=== PATIENT | female | born 1975 | race Caucasian/White ===

== ENCOUNTER 2017-04-29 19:48 | Inpatient (IN) ==
[2017-04-29] MEDS ORDERED: Vancomycin 1,000 MG in D5% in Water 250 ML IVPB ONE (19:51)
[2017-04-29] MEDS: 0.9 % Sodium Chloride 1,000 ML IVC SCH ×2 (20:09→21:41)
[2017-04-29] MEDS ORDERED: *HR* FentaNYL (PF) 100 MCG/2 ML VIAL IVP ONE (20:12)
[2017-04-29] MEDS ORDERED: Sulfamethoxazole/Trimeth 34 ML in D5% in Water 500 ML IVPB STA (20:12)
[2017-04-29 20:13] LABS: Basophils % 0.4 %; Eosinophils # 0.1 K/mcL (0.0-0.6); Eosinophils % 1.1 %; Hematocrit 35.9 % (35.3-44.9); Hemoglobin 11.3 g/dL (11.5-15.4); Immature Granulocytes % 0.6 % (0-4); Lymphocytes # 1.1 K/mcL (0.6-4.6); Lymphocytes % 12.2 %; Mean Corpuscular HGB Conc 31.5 g/dL (31.6-35.5); Mean Corpuscular Hemoglobin 25.9 pg (28.0-33.3); Mean Corpuscular Volume 82.3 fL (83.0-100.0); Mean Platelet Volume 9.9 fL (9.4-12.4); Monocytes # 0.9 K/mcL (0.0-1.3); Monocytes % 9.8 %; Neutrophils # 6.8 K/mcL (1.6-8.9); Platelet Count 166 K/mcL (140-400); Red Blood Count 4.36 M/mcL (3.82-4.97); Red Cell Distribution Width 19.3 % (11.5-14.5); Segmented Neutrophils % 75.9 %
[2017-04-29 20:25] LABS: Prothrombin Time 10.6 Seconds (9.4-12.1)
--- NOTE | 2017-04-29 20:26 | Emergency Department Note ---
Disposition Clinical Impression: Cellulitis of elbow Disposition: Admitted As Inpatient Condition: Good Referrals: NONE,PCP [Primary Care Provider] - Forms: ED Satisfaction Letter Time of Disposition: 22:29 Extremity Problem HPI - General Chief complaint: ED Extremity Problem,Nontraumatic Stated complaint: right elbow cellulitis Time Seen by Provider: 04/29/17 19:51 Source: patient, EMS Limitations: no limitations Nursing Notes Reviewed: Yes Vital Signs Reviewed: Yes - History of Present Illness HPI Narrative: 42 year old female who is a IVDA and states that she had some increased cellulytic change to her right elbow that started yesterday and now it is increasingly swollen and difficult to move due to pain. She was originally seen in the urgent care and presnted hypotensive and tachycardic. She denies fevers, or nasuea or vomitting. She states that she shot up in the arm a few days ago. Patinet states that she is having difficulty with range of motion due to pain and it is extremely tender to touch. Patient is curled up in bed and tearful. Pulses are do proximally and distally and good cap refill in the fingers. Pain Scale: 10 - Related Data Home Medications Medication Instructions Recorded Confirmed Albuterol Sulfate [Albuterol 2 puff IH Q6H PRN 04/24/16 04/29/17 Inhaler] Aripiprazole [Abilify] 20 mg PO DAILY 04/24/16 04/29/17 Vortioxetine Hydrobromide 20 mg PO QAM 04/24/16 04/29/17 [Trintellix] Zolpidem [Ambien] 10 mg PO HS 04/24/16 04/29/17 clonazePAM [Klonopin] 1 mg PO 5XD 04/24/16 04/29/17 Alendronate Sodium 70 mg PO TH 04/29/17 04/29/17 Aripiprazole [Abilify] 5 mg PO DAILY 04/29/17 04/29/17 Calcium Carbonate/Vitamin D3 1 each PO BID 04/29/17 04/29/17 [Calcium 600-Vit D3 400 Tablet] CarBAMazepine [Equetro] 100 mg PO BID 04/29/17 04/29/17 Docusate Sodium [Dok] 100 mg PO BID 04/29/17 04/29/17 Doxepin [Sinequan] 25 mg PO HS 04/29/17 04/29/17 Gabapentin [Neurontin] 900 mg PO TID 04/29/17 04/29/17 Omeprazole [PriLOSEC] 20 mg PO DAILY 04/29/17 04/29/17 Allergies Allergy/AdvReac Type Severity Reaction Status Date / Time Amoxicillin [From Amoxil] AdvReac Diarrhea Verified 04/29/17 20:46 Cyclobenzaprine AdvReac Shakiness Verified 04/29/17 20:46 [From Flexeril] Constitutional: Denies: fever, chills, weakness, weight change Eyes: Denies: eye pain, eye discharge, vision change ENT ED: Denies: ear pain, throat pain, dental pain, hearing loss, epistaxis, congestion, dysphagia Cardiovascular: Denies: chest pain, palpitations, dyspnea on exertion, edema, syncope Respiratory: Denies: cough, dyspnea, wheezes, hemoptysis, stridor Gastrointestinal: Denies: abdominal pain, nausea, vomiting, diarrhea, constipation, hematemesis, melena, hematochezia Genitourinary: Denies: dysuria, frequency, hematuria, discharge Musculoskeletal: Reports: other (right elbow pain). Denies: back pain, neck pain, arthralgia, myalgia Integumentary: Denies: rash, abrasion, lesions Neurological: Denies: headache, weakness, numbness, paresthesias, confusion, abnormal gait, vertigo Psychiatric: Denies: anxiety, depression, suicidal thoughts, homicidal thoughts , auditory hallucinations, visual hallucinations Endocrine: Denies: fatigue Hematological/Lymphatic: Denies: easy bleeding, easy bruising Allergic/Immunologic: Denies: facial swelling, urticaria Past Medical History - Past Medical History Medical history: Reports: no medical history, other Psychiatric history: Reports: prior suicide attempt, previous psychiatric hospitalization - Social History Smoking Status: Current every day smoker Smokeless Tobacco Status: No Alcohol use: Reports: none Drug use: Reports: marijuana Physical Exam - General Limitations: no limitations General appearance: alert, in no apparent distress - Head Head exam: atraumatic, normocephalic, normal inspection - Eye Eye exam: Present: normal appearance, PERRL, EOMI - Expanded Eye Exam Pupils: Left: reactive - ENT ENT exam: normal exam, normal oropharynx, mucous membranes moist - Expanded ENT Exam External ear exam: Present: normal external inspection Mouth exam: Present: normal external inspection Teeth exam: Present: normal inspection Throat exam: Present: normal inspection - Neck Neck exam: Present: normal inspection, full ROM, trachea midline - Chest Chest inspection: Present: normal inspection, symmetric chest wall rise - Respiratory Respiratory exam: Present: normal lung sounds bilaterally - Cardiovascular Cardiovascular exam: Present: regular rate, normal rhythm, normal heart sounds - Abdominal Exam Abdominal exam: Present: soft, Non-Tender. Absent: tenderness, distention, guarding, rebound, rigidity - Extremities Exam Extremities exam: Present: normal inspection, full ROM. Absent: tenderness, pedal edema - Expanded Upper Extremity Exam Shoulder exam: Present: normal inspection, full ROM Arm exam: Present: normal inspection, full ROM Elbow exam: Present: tenderness, swelling, erythema, other (right elbow is swollen with eythematous change and tender to touch, good pulses proximally and distally , good cap refill in right arm). Absent: full ROM, ecchymosis, deformity Forearm/Wrist exam: Present: normal inspection, full ROM Hand exam: Present: normal inspection, full ROM Vascular exam: Normal: capillary refill, radial pulse - Expanded Lower Extremity Exam Hip/Pelvis exam: Present: normal inspection, full ROM Upper leg exam: Present: normal inspection, full ROM Knee exam: Present: normal inspection, full ROM Lower leg exam: Present: normal inspection, full ROM Ankle exam: Present: normal inspection, full ROM Foot/toe exam: Present: normal inspection, full ROM Neurovascular/Tendon exam: Absent: motor deficit, sensory deficit, tendon deficit - Back Exam Back exam: Present: normal inspection, full ROM. Absent: tenderness - Neurological Exam Neurological exam: Present: alert, oriented X3 - Expanded Neurological Exam Patient oriented to: Present: person, place, time Coma Scale Eye Opening: Spontaneous Coma Scale Motor Response: Obeys Commands Coma Scale Verbal Response: Oriented Coma Scale Total: 15 - Psychiatric Psychiatric exam: Present: normal affect, normal mood - Skin Skin exam: Present: warm, dry, intact, normal color - Expanded Skin Exam 1 - cellutlits and swollen elbow Course Course Narrative: we will do CT of the right extremitiy in addition to vanco/bactrim for therapy and IVF. SEpsis protocol. admit to medicine. - Reevaluation(s) Reevaluation #1: updated [place] results. WE will admit to medicne. She is agreeable to admission. Time: 22:28 - Consultations Consultation #1: discused case with dr styles and he accepts patinet for admission. Time: 22:29 Vital Signs Temperature 98.0 F 04/29/17 19:52 Pulse Rate 99 04/29/17 19:52 Respiratory Rate 16 04/29/17 19:52 Blood Pressure 95/73 04/29/17 19:52 O2 Sat by Pulse Oximetry 96 04/29/17 19:52 Temperature 98.0 F 04/29/17 19:52 Pulse Rate 99 04/29/17 19:52 Respiratory Rate 16 04/29/17 19:52 Blood Pressure 95/73 04/29/17 19:52 O2 Sat by Pulse Oximetry 97 04/29/17 19:58 Oxygen Delivery Oxygen Delivery Room Air Extremity Problem, Nontraumati - Lab Data Result diagrams: 04/29/17 20:05 04/29/17 20:05 Lab Results 04/29/17 04/29/17 04/29/17 Range/Units 20:05 20:05 20:05 WBC 9.0 (4.3-11.1) K/mcL RBC 4.36 (3.82-4.97) M/mcL Hgb 11.3 L (11.5-15.4) g/dL Hct 35.9 (35.3-44.9) % MCV 82.3 L (83.0-100.0) fL MCH 25.9 L (28.0-33.3) pg MCHC 31.5 L (31.6-35.5) g/dL RDW 19.3 H (11.5-14.5) % Plt Count 166 (140-400) K/mcL MPV 9.9 (9.4-12.4) fL Immature Gran % 0.6 (0-4) % Seg Neutrophils % 75.9 % Lymphocytes % 12.2 % Monocytes % 9.8 % Eosinophils % 1.1 % Basophils % 0.4 % Neutrophils # 6.8 (1.6-8.9) K/mcL Lymphocytes # 1.1 (0.6-4.6) K/mcL Monocytes # 0.9 (0.0-1.3) K/mcL Eosinophils # 0.1 (0.0-0.6) K/mcL Basophils # 0.0 (0.0-0.2) K/mcL PT 10.6 (9.4-12.1) Seconds INR 1.0 APTT 26.7 (26.0-36.0) Seconds Sodium (136-145) mEq/L Potassium (3.5-4.5) mEq/L Chloride (98-109) mEq/L Carbon Dioxide (19-29) mEq/L BUN (7-20) mg/dL Creatinine (0.57-1.11) mg/dL Est GFR ( Amer) (> 60) Est GFR (Non-Af Amer) (> 60) BUN/Creatinine Ratio (6-26) Glucose (70-99) mg/dL Calculated Osmolality (280-300) Lactic Acid (0.5-2.2) mmol/L Calcium (8.6-10.8) mg/dL Phosphorus (2.3-4.7) mg/dL Magnesium (1.6-2.6) mg/dL Total Bilirubin (0.2-1.2) mg/dL Direct Bilirubin (0.0-0.5) mg/dL Indirect Bilirubin (0.0-1.2) mg/dL AST (5-34) Units/L ALT (0-55) Units/L Alkaline Phosphatase (38-126) Units/L Troponin I (0-0.03) ng/mL Serum Total Protein (6.0-8.3) g/dL Albumin (3.5-5.0) g/dL Globulin (2.4-3.5) g/dL Albumin/Globulin Ratio (1.1-2.2) Lipase 41 (8-78) Units/L 04/29/17 04/29/17 04/29/17 Range/Units 20:05 20:05 20:05 WBC (4.3-11.1) K/mcL RBC (3.82-4.97) M/mcL Hgb (11.5-15.4) g/dL Hct (35.3-44.9) % MCV (83.0-100.0) fL MCH (28.0-33.3) pg MCHC (31.6-35.5) g/dL RDW (11.5-14.5) % Plt Count (140-400) K/mcL MPV (9.4-12.4) fL Immature Gran % (0-4) % Seg Neutrophils % % Lymphocytes % % Monocytes % % Eosinophils % % Basophils % % Neutrophils # (1.6-8.9) K/mcL Lymphocytes # (0.6-4.6) K/mcL Monocytes # (0.0-1.3) K/mcL Eosinophils # (0.0-0.6) K/mcL Basophils # (0.0-0.2) K/mcL PT (9.4-12.1) Seconds INR APTT (26.0-36.0) Seconds Sodium 141 (136-145) mEq/L Potassium 3.5 (3.5-4.5) mEq/L Chloride 108 (98-109) mEq/L Carbon Dioxide 23 (19-29) mEq/L BUN 11 (7-20) mg/dL Creatinine 0.67 (0.57-1.11) mg/dL Est GFR ( Amer) > 60 (> 60) Est GFR (Non-Af Amer) > 60 (> 60) BUN/Creatinine Ratio 16 (6-26) Glucose 141 H (70-99) mg/dL Calculated Osmolality 294 (280-300) Lactic Acid 1.9 (0.5-2.2) mmol/L Calcium 8.8 (8.6-10.8) mg/dL Phosphorus 2.3 (2.3-4.7) mg/dL Magnesium 1.5 L (1.6-2.6) mg/dL Total Bilirubin 0.3 (0.2-1.2) mg/dL Direct Bilirubin 0.2 (0.0-0.5) mg/dL Indirect Bilirubin 0.1 (0.0-1.2) mg/dL AST 61 H (5-34) Units/L ALT 83 H (0-55) Units/L Alkaline Phosphatase 275 H (38-126) Units/L Troponin I 0.00 (0-0.03) ng/mL Serum Total Protein 6.9 (6.0-8.3) g/dL Albumin 2.9 L (3.5-5.0) g/dL Globulin 4.0 H (2.4-3.5) g/dL Albumin/Globulin Ratio 0.7 L (1.1-2.2) Lipase (8-78) Units/L - EKG Data EKG attestation: Yes I reviewed and interpreted this EKG. EKG results narrative: sinus tachcyardia with rate of 107. NO STEMI. short AL interval. no change from 04/23/16. 2001
[2017-04-29 20:28] LABS: Activated Partial Thrombo Time 26.7 Seconds (26.0-36.0); Alanine Aminotransferase 83 Units/L (0-55); Albumin 2.9 g/dL (3.5-5.0); Albumin/Globulin Ratio 0.7 (1.1-2.2); Alkaline Phosphatase 275 Units/L (38-126); Aspartate Amino Transferase 61 Units/L (5-34); BUN/Creatinine Ratio 16 (6-26); Bilirubin,Direct 0.2 mg/dL (0.0-0.5); Bilirubin,Indirect 0.1 mg/dL (0.0-1.2); Bilirubin,Total 0.3 mg/dL (0.2-1.2); Blood Urea Nitrogen 11 mg/dL (7-20); Calcium 8.8 mg/dL (8.6-10.8); Carbon Dioxide 23 mEq/L (19-29); Chloride 108 mEq/L (98-109); Glucose 141 mg/dL (70-99); Magnesium 1.5 mg/dL (1.6-2.6); Osmolality,Calculated 294 (280-300); Phosphorous 2.3 mg/dL (2.3-4.7); Potassium 3.5 mEq/L (3.5-4.5); Sodium 141 mEq/L (136-145); Total Protein 6.9 g/dL (6.0-8.3); eGFR For African Americans > 60 (> 60); eGFR For Non-African Americans > 60 (> 60)
[2017-04-29] MEDS ORDERED: clonazePAM 1 MG TABLET PO PRN (23:27)
[2017-04-29] MEDS ORDERED: Naloxone 0.4 MG/ML INJ IVP PRN (23:29)
--- NOTE | 2017-04-29 23:36 | Internal Med History&Physical ---
Date of Encounter: 04/30/17 Time of Encounter: 00:03 Assessment and Plan (1) Cellulitis of elbow Current visit: Yes Status: Acute IV vancomycin, add IV Zosyn given gas on CT to cover anaerobes and gas producing organisms. IV fluid boluses. Given CT findings of no drainable pockets of fluid we will hold general surgery consult for now and monitor hospital course - Will reevaluate response to antibiotics during hospitalization Blood cultures sent from the ER (2) Anxiety Current visit: No Status: Acute Continue medicines, dual diagnosis (3) Depression Current visit: No Status: Acute Continue medicines, dual diagnosis Qualifiers: Depression Type: major depressive disorder Major depression recurrence: recurrent Active/Remission status: currently active Major depression episode severity: moderate Qualified Code(s): F33.1 - Major depressive disorder, recurrent, moderate (4) Polysubstance abuse Current visit: No Status: Acute Reports amphetamines and use to me denies opiates Urine drug screen Social work consult Internal Medicine - H&P: HPI Chief complaint: right elbow swelling History of present illness: Ms. South is a 42 year old female with history of IV and nasal amphetamine use (denies opiate use) who presents with 2-3 days worsening right elbow swelling associated with pain. Also reports feeling subjective fevers. She was admitted for treatment off complicated cellulitis given her symptoms and clinical findings of borderline low blood pressure on presentation. She reports attempted IV access of that arm recently. She reports progressive pain in the right elbow but denies any sensory deficits. Objectively her white count and lactic acid were normal. Blood pressure borderline low normal. In sinus tachycardia. CT of the elbow did not identify any fluid collection that could be drained but suggested a small collection of gas in the subcutaneous fat FINDINGS: Bones: No fracture or dislocation. No osseous erosion. No suspicious lytic or blastic osseous lesion. Soft Tissue: There is a 2.8 x 1.1 x 2.2 cm collection of gas in the subcutaneous fat posterior and ulnar to the proximal ulna. Adjacent subcutaneous fat stranding and skin thickening. No well-defined drainable fluid collection. The visualized musculature is unremarkable. No abnormal soft tissue mass. The neurovascular structures are within normal limits. Joint: No joint effusion or significant degenerative changes. RECOMMENDATIONS: 1. 2.8 x 1.1 x 2.2 cm collection of gas in the subcutaneous fat posterior and ulnar to the proximal ulna with adjacent subcutaneous fat stranding and skin thickening compatible cellulitis. No well-defined drainable fluid collection. 2. No acute osseous abnormality. Past Med Surg Social Fam HX - Past Medical History Medical history: arthritis Psychiatric history: bipolar, PTSD, prior suicide attempt, previous psychiatric hospitalization - Social History Smoking Status: Current every day smoker Packs per day: 1/2 Smokeless Tobacco Status: No Alcohol use: none Drug use: marijuana Internal Medicine - H&P: Meds Albuterol Sulfate [Albuterol Inhaler] 2 puff IH Q6H PRN 04/24/16 [History] Aripiprazole [Abilify] 20 mg PO DAILY 04/24/16 [History] Vortioxetine Hydrobromide [Trintellix] 20 mg PO QAM 04/24/16 [History] Zolpidem [Ambien] 10 mg PO HS 04/24/16 [History] clonazePAM [Klonopin] 1 mg PO 5XD 04/24/16 [History] Alendronate Sodium 70 mg PO TH 04/29/17 [History] Aripiprazole [Abilify] 5 mg PO DAILY 04/29/17 [History] Calcium Carbonate/Vitamin D3 [Calcium 600-Vit D3 400 Tablet] 1 each PO BID 04/29 [History] CarBAMazepine [Equetro] 100 mg PO BID 04/29/17 [History] Docusate Sodium [Dok] 100 mg PO BID 04/29/17 [History] Doxepin [Sinequan] 25 mg PO HS 04/29/17 [History] Gabapentin [Neurontin] 900 mg PO TID 04/29/17 [History] Omeprazole [PriLOSEC] 20 mg PO DAILY 04/29/17 [History] 3 Allergy/AdvReac Type Severity Reaction Status Date / Time Amoxicillin [From Amoxil] AdvReac Diarrhea Verified 04/29/17 20:46 Cyclobenzaprine AdvReac Shakiness Verified 04/29/17 20:46 [From Flexeril] All Systems PM: A 10-system review of systems was performed and is negative for pertinent findings except as documented above in the HPI. Review of systems: ROS 14 point review of systems reviewed as best as possible given presentation. Pertinent positive or negative as per HPI or otherwise reviewed as negative - Constitutional Vitals: Temp Pulse Resp BP Pulse Ox 98.0 F 99 18 101/67 97 09/11/17 19:52 04/29/17 19:52 04/29/17 22:39 04/29/17 22:39 04/29/17 19:58 Exam: General - AAO x 3 Psych - Appropriate affect/speech. No agitation Eyes - RENÉE. Eye lids intact. No scleral icterus Heart - sinus tachycardia. RRR. S1 and S2 present. No added HS/murmurs appreciated. No elevated JVD appreciated. Lung - Adequate air entry b/l, No crackles/wheezes appreciated GI - Soft, non-tender. No hepatosplenomegaly/ascites. BS+ - No CVA/suprapubic tenderness or palpable bladder distension Skin - tattoos present. Small puncture wounds in the extremities noted but does not appear infected MSK - right elbow swelling and tense with movements Internal Med - H&P Results - Labs CBC & Chem 7: 04/29/17 20:05 04/29/17 20:05
[2017-04-29] MEDS ORDERED: Magnesium Sulfate 2 GM in D5% in Water 100 ML IVPB ONE (23:49)
[2017-04-30] MEDS: Gabapentin 300 MG CAPSULE PO SCH ×4 (00:07→21:13)
[2017-04-30] MEDS: *HR* HYDROmorphone 2 MG/ML SYRINGE IVP PRN ×3 (00:09→21:13)
[2017-04-30] MEDS: 0.9 % Sodium Chloride 1,000 ML IVC SCH ×4 (00:12→21:13)
[2017-04-30] MEDS: Piperacillin/Tazobactam 3.375 GM in D5% in Water (Mini-Bag+) 100 ML IVPB SCH ×3 (00:13→15:06)
[2017-04-30 03:51] LABS: Basophils % 0.3 %; Eosinophils # 0.1 K/mcL (0.0-0.6); Eosinophils % 1.9 %; Hematocrit 33.7 % (35.3-44.9); Hemoglobin 10.3 g/dL (11.5-15.4); Immature Granulocytes % 0.4 % (0-4); Lymphocytes % 14.2 %; Mean Corpuscular HGB Conc 30.6 g/dL (31.6-35.5); Mean Corpuscular Hemoglobin 25.8 pg (28.0-33.3); Mean Corpuscular Volume 84.3 fL (83.0-100.0); Mean Platelet Volume 10.4 fL (9.4-12.4); Monocytes # 0.7 K/mcL (0.0-1.3); Monocytes % 9.8 %; Neutrophils # 4.9 K/mcL (1.6-8.9); Platelet Count 153 K/mcL (140-400); Red Cell Distribution Width 19.5 % (11.5-14.5); Segmented Neutrophils % 73.4 %
[2017-04-30 04:05] LABS: BUN/Creatinine Ratio 11 (6-26); Blood Urea Nitrogen 7 mg/dL (7-20); Calcium 7.7 mg/dL (8.6-10.8); Carbon Dioxide 19 mEq/L (19-29); Chloride 113 mEq/L (98-109); Glucose 101 mg/dL (70-99); Osmolality,Calculated 288 (280-300); Potassium 3.6 mEq/L (3.5-4.5); Sodium 140 mEq/L (136-145); eGFR For African Americans > 60 (> 60); eGFR For Non-African Americans > 60 (> 60)
[2017-04-30] MEDS: *HR* Enoxaparin 40 MG/0.4 ML SYRINGE SQ SCH (06:21)
[2017-04-30 06:48] LABS: Amphetamine Screen,Urine Positive ng/mL (Cutoff=1000); Barbiturate Screen,Urine Negative ng/mL (Cutoff=200); Benzodiazepines Screen,Urine Negative ng/mL (Cutoff=200); Cannabinoid Screen,Urine Positive ng/mL (Cutoff = 50); Cocaine Screen,Urine Negative ng/mL (Cutoff= 300); Opiate Screen,Urine Positive ng/mL (Cutoff=300); Phencyclidine Screen,Urine Negative ng/mL (Cutoff=25)
[2017-04-30] MEDS ORDERED: 0.9 % Sodium Chloride 1,000 ML IVC ONE (09:24)
[2017-04-30] MEDS: ARIPiprazole 5 MG TABLET PO SCH (10:17)
[2017-04-30] MEDS: ARIPiprazole 10 MG TABLET PO SCH (10:17)
[2017-04-30] MEDS: Vortioxetine Hydrobromide [Trintellix] 20 MG PO SCH (10:18)
[2017-04-30] MEDS: Calcium 600-Vit D3 PO SCH ×2 (10:18→21:14)
[2017-04-30] MEDS ORDERED: Vancomycin 750 MG in D5% in Water 250 ML IVPB SCH (11:00)
[2017-04-30] MEDS: Vancomycin 1,000 MG in D5% in Water 250 ML IVPB SCH ×2 (11:00→21:12)
--- NOTE | 2017-04-30 11:16 | Event Note ---
Date of Encounter: 04/30/17 Time of Encounter: 08:15 Pt was seen and assessed at 0815. She was asleep with male in the bed when I entered the room. She was groggy and speech was slightly garbled initially. Right elbow is swollen and red with normal ROM. Nurse is going to efrain borders of redness and swelling. Pt states that she has never done IV drugs prior to incident that caused this visit. She reports that she normally only uses methamphetamine and last use was 4 days ago and normally only snorts it, IV use was a one time event. Power glyde being placed today due to poor IV access and Vancomycin administration. Left elbow CT revealed collection of gas in subq fat , as well as skin thickening compatible with cellulitis, no drainable fluid collection, no acute osseous abnormality. Pt and I discussed plan of care and pain management, she is agreeable to continued treatment. Pt denies chest pain, headache, dizziness, abdominal pain, n/v/d, diaphoresis, or SOB. She reports pain only to right elbow. She requested to go outside to smoke, nicotine patch ordered, pt is agreeable. Physical exam is unremarkable. S1S2, RRR, no clicks, gallops, or murmurs. Lungs are clear anterior and posterior, no wheezing, ronchi, rales, or respiratory distress. ABd is soft and non-tender, bowel sounds present. No peripheral edema , peripheral pulses palpable and +2 ag upper and lower extremities. She is alert and oriented, speech is clear. We will continue IV antibiotics and non-narcotic analgesic pain control. She has been hypotensive and will treat with boluses prn. White count is WNL, lactic is WNL at 1.3. She has been afebrile, without tachycardia or tachypnea. Calcium 7.7, treated with Calcium carbonate 1gram QID. Pt was positive for opiates, amphetamines, and THC. We will continue to monitor labs, vitals, and pt condition and continue home medications for anxiety, depression and GERD.
[2017-04-30] MEDS: Nicotine 14 MG PATCH.TD24 TD SCH (12:54)
--- NOTE | 2017-04-30 13:43 | General Surgery Consult Note ---
Date of Encounter: 04/30/17 Time of Encounter: 13:37 Assessment and Plan (1) Cellulitis of elbow Current Visit: Yes Status: Acute continue with broad spectrum IV antibiotics (vanc/zosyn recommend continuing until redness is shows significant improvement while inpatient trend wbc and temperature daily physical exams to assess for worsening (or improvement in) disease no surgery needed at this time (2) Hypokalemia Current Visit: Yes Status: Acute recommend repleting K+ to value of 4.0 repeat BMP in AM; trend as needed (3) Hypomagnesemia Current Visit: Yes Status: Acute replete magnesium add to AM labs trend as needed History of Present Illness Consult date: 04/30/17 Reason for consult: other (evalutation of Right elbow cellulitis) Requesting physician: Alda Beck History of present illness: This is a cordial 42 year old female with a PMH significant for IVDA, depression , anxiety, prior suicide attempts who presents with Right elbow cellulitis. She states that on 04/27 she attempted to use methamphetamines intravenously. She subsequently woke up on 04/28 with pain in her Right elbow with associated redness and limited range of motion. Due to non improvement of her symptoms, she came to the emergency department on 04/29. She was admitted and started on IV antibiotics. No reports of fevers, chills, nausea, vomiting, nor drainage. A CT scan was obtained demonstrating a small pocket of gas along her elbow. Surgery was consulted for further evaluation. Past Med Surg Social Fam HX - Past Medical History Medical history: arthritis, other (Right sided renal cancer) Psychiatric history: bipolar, PTSD, prior suicide attempt, previous psychiatric hospitalization - Past Surgical History Surgical History: other (Resection of R sided Kidney Tumor) - Social History Smoking Status: Current every day smoker Packs per day: 1/2 Smokeless Tobacco Status: No Alcohol use: none Drug use: marijuana - Additional Family History Additional family history: non contributory Medications and Allergies Albuterol Sulfate [Albuterol Inhaler] 2 puff IH Q6H PRN 04/24/16 [History] Aripiprazole [Abilify] 20 mg PO DAILY 04/24/16 [History] Vortioxetine Hydrobromide [Trintellix] 20 mg PO QAM 04/24/16 [History] Zolpidem [Ambien] 10 mg PO HS 04/24/16 [History] clonazePAM [Klonopin] 1 mg PO 5XD 04/24/16 [History] Alendronate Sodium 70 mg PO TH 04/29/17 [History] Aripiprazole [Abilify] 5 mg PO DAILY 04/29/17 [History] Calcium Carbonate/Vitamin D3 [Calcium 600-Vit D3 400 Tablet] 1 each PO BID 04/29 [History] CarBAMazepine [Equetro] 100 mg PO BID 04/29/17 [History] Docusate Sodium [Dok] 100 mg PO BID 04/29/17 [History] Doxepin [Sinequan] 25 mg PO HS 04/29/17 [History] Gabapentin [Neurontin] 900 mg PO TID 04/29/17 [History] Omeprazole [PriLOSEC] 20 mg PO DAILY 04/29/17 [History] 3 Allergy/AdvReac Type Severity Reaction Status Date / Time Amoxicillin [From Amoxil] AdvReac Diarrhea Verified 04/29/17 20:46 Cyclobenzaprine AdvReac Shakiness Verified 04/29/17 20:46 [From Flexeril] Review of Systems All systems PM: A 10-system review of systems was performed and is negative for pertinent findings except as documented below - Musculoskeletal joint swelling, limited range of motion right: elbow pain, elbow stiffness (limited range of motion due to pain and swelling), elbow swelling - Integumentary other (erythema along R elbow) - Psychiatric anxiety, depression General Surgery Exam Initial Vital Signs Temp Pulse Resp BP Pulse Ox 98.0 F 99 16 95/73 96 04/29/17 19:52 04/29/17 19:52 04/29/17 19:52 04/29/17 19:52 04/29/17 19:52 - General physical appearance no distress - Eyes normal ocular movement - ENT normal nares - Neck no lymphadectomy - Respiratory normal expansion, normal respiratory effort, clear to auscultation, other (no audible wheezes; ) - Expanded Cardiovascular Exam Peripheral pulses: 2+: Radial (L), Radial (R) - Abdomen Abdomen general surgery: Present: soft, non tender, distended, surgical scars ( well healed surgical scar along R flank) Hernia: Present: none - Integumentary Integumentary general surgery: Present: other (erythema along R elbow, receding from prior markings;) - Neurologic Present: CN 2-12 grossly intact, normal sensation, other (motor sensory intact in R forearm, wrist, and digits; ) - Musculoskeletal Present: other (limited range of motion of R elbow due to pain) - Psychiatric Psychiatric general surgery: Present: A&Ox3, appropriate, speech is normal - Additional Findings No purulent drainge from R elbow, no crepitus appreciated on exam; Exam Initial Vital Signs Temp Pulse Resp BP Pulse Ox 98.0 F 99 16 95/73 96 04/29/17 19:52 04/29/17 19:52 04/29/17 19:52 04/29/17 19:52 04/29/17 19:52 Results - Labs 04/30/17 03:36 04/30/17 03:36 Abnormal lab results Hgb 10.3 g/dL (11.5-15.4) L 04/30/17 03:36 Hct 33.7 % (35.3-44.9) L 04/30/17 03:36 MCH 25.8 pg (28.0-33.3) L 04/30/17 03:36 MCHC 30.6 g/dL (31.6-35.5) L 04/30/17 03:36 RDW 19.5 % (11.5-14.5) H 04/30/17 03:36 Chloride 113 mEq/L (98-109) H 04/30/17 03:36 Glucose 101 mg/dL (70-99) H 04/30/17 03:36 Calcium 7.7 mg/dL (8.6-10.8) L 04/30/17 03:36 AST 61 Units/L (5-34) H 04/29/17 20:05 ALT 83 Units/L (0-55) H 04/29/17 20:05 Alkaline Phosphatase 275 Units/L (38-126) H 04/29/17 20:05 Albumin 2.9 g/dL (3.5-5.0) L 04/29/17 20:05 Globulin 4.0 g/dL (2.4-3.5) H 04/29/17 20:05 Albumin/Globulin Ratio 0.7 (1.1-2.2) L 04/29/17 20:05 Urine Opiates Screen Positive ng/mL (Nwiaoa=379) H 04/30/17 06:30 Ur Amphetamines Screen Positive ng/mL (Cchxxt=9228) H 04/30/17 06:30 U Marijuana (THC) Screen Positive ng/mL (Cutoff = 50) H 04/30/17 06:30 Diabetes panel 04/30/17 Range/Units 03:36 Sodium 140 (136-145) mEq/L Potassium 3.6 (3.5-4.5) mEq/L Chloride 113 H (98-109) mEq/L Carbon Dioxide 19 (19-29) mEq/L BUN 7 (7-20) mg/dL Creatinine 0.63 (0.57-1.11) mg/dL Glucose 101 H (70-99) mg/dL Calcium 7.7 L (8.6-10.8) mg/dL Calcium panel 04/30/17 Range/Units 03:36 Calcium 7.7 L (8.6-10.8) mg/dL Pituitary panel 04/30/17 Range/Units 03:36 Sodium 140 (136-145) mEq/L Potassium 3.6 (3.5-4.5) mEq/L Chloride 113 H (98-109) mEq/L Carbon Dioxide 19 (19-29) mEq/L BUN 7 (7-20) mg/dL Creatinine 0.63 (0.57-1.11) mg/dL Glucose 101 H (70-99) mg/dL Calcium 7.7 L (8.6-10.8) mg/dL Adrenal panel 04/30/17 Range/Units 03:36 Sodium 140 (136-145) mEq/L Potassium 3.6 (3.5-4.5) mEq/L Chloride 113 H (98-109) mEq/L Carbon Dioxide 19 (19-29) mEq/L BUN 7 (7-20) mg/dL Creatinine 0.63 (0.57-1.11) mg/dL Glucose 101 H (70-99) mg/dL Calcium 7.7 L (8.6-10.8) mg/dL All other labs normal. - Imaging Additional studies: 2.8cm x 1.1cm x 2.cm pocket of gas along R elbow; no drainage fluid collection; (+)fat stranding of soft tissue; no bony involvement; Consult Discharge Plan - Plan Referrals: NONE,PCP [Primary Care Provider] -
--- NOTE | 2017-04-30 14:25 | Electrocardiograph Report ---
[place] [address] Test Date: 2017-04-29 Pat Name: Huma [place] Department: 105 Room: 3B23 Gender: F [employer] Operator: : 1975 Requested By: Yamilex Reaves Order Number: [id number] Reading MD: Rosangela Hurst Measurements Intervals Erwin Rate: 107 P: 80 MS: 110 QRS: 77 QRSD: 89 T: 49 QT: 315 QTc: 378 Interpretive Statements SINUS TACHYCARDIA WITH SHORT MS INTERVAL ABNORMAL RHYTHM ECG Electronically Signed On 04-30-2017 14:23:49 EDT by Rosangela Hurst
[2017-05-01] MEDS: Piperacillin/Tazobactam 3.375 GM in D5% in Water (Mini-Bag+) 100 ML IVPB SCH ×3 (00:20→18:34)
[2017-05-01 04:28] LABS: Basophils % 0.3 %; Eosinophils # 0.1 K/mcL (0.0-0.6); Eosinophils % 2.3 %; Hematocrit 33.8 % (35.3-44.9); Hemoglobin 10.5 g/dL (11.5-15.4); Immature Granulocytes % 0.7 % (0-4); Lymphocytes # 0.8 K/mcL (0.6-4.6); Lymphocytes % 13.3 %; Mean Corpuscular HGB Conc 31.1 g/dL (31.6-35.5); Mean Corpuscular Hemoglobin 25.9 pg (28.0-33.3); Mean Corpuscular Volume 83.5 fL (83.0-100.0); Mean Platelet Volume 10.9 fL (9.4-12.4); Monocytes # 0.6 K/mcL (0.0-1.3); Monocytes % 9.7 %; Neutrophils # 4.4 K/mcL (1.6-8.9); Platelet Count 162 K/mcL (140-400); Red Blood Count 4.05 M/mcL (3.82-4.97); Red Cell Distribution Width 19.6 % (11.5-14.5); Segmented Neutrophils % 73.7 %
[2017-05-01 04:43] LABS: BUN/Creatinine Ratio 6 (6-26); Calcium 8.1 mg/dL (8.6-10.8); Carbon Dioxide 23 mEq/L (19-29); Chloride 108 mEq/L (98-109); Glucose 108 mg/dL (70-99); Osmolality,Calculated 279 (280-300); Potassium 3.8 mEq/L (3.5-4.5); Sodium 136 mEq/L (136-145); eGFR For African Americans > 60 (> 60); eGFR For Non-African Americans > 60 (> 60)
[2017-05-01 04:44] LABS: Blood Urea Nitrogen 4 mg/dL (7-20)
[2017-05-01] MEDS: *HR* Enoxaparin 40 MG/0.4 ML SYRINGE SQ SCH (05:41)
[2017-05-01] MEDS: *HR* HYDROmorphone 2 MG/ML SYRINGE IVP PRN ×3 (05:45→22:49)
[2017-05-01] MEDS: Calcium 600-Vit D3 PO SCH ×2 (09:10→20:05)
[2017-05-01] MEDS: Vortioxetine Hydrobromide [Trintellix] 20 MG PO SCH (09:10)
[2017-05-01] MEDS: 0.9 % Sodium Chloride 1,000 ML IVC SCH ×3 (09:11→22:43)
[2017-05-01] MEDS: Vancomycin 1,000 MG in D5% in Water 250 ML IVPB SCH (09:26)
[2017-05-01] MEDS: ARIPiprazole 5 MG TABLET PO SCH (09:26)
[2017-05-01] MEDS: ARIPiprazole 10 MG TABLET PO SCH (09:26)
[2017-05-01] MEDS: Gabapentin 300 MG CAPSULE PO SCH ×3 (09:27→20:01)
[2017-05-01] MEDS: Nicotine 14 MG PATCH.TD24 TD SCH (09:27)
--- NOTE | 2017-05-01 10:28 | General Surgery Progress Note ---
Date of Encounter: 05/01/17 Time of Encounter: 08:00 - Assessment and Plan (1) Cellulitis of elbow Current Visit: Yes Status: Acute continue with broad spectrum IV antibiotics (vanc/zosyn recommend continuing until redness is shows significant improvement while inpatient trend wbc and temperature daily physical exams to assess for worsening (or improvement in) disease no surgery needed at this time (2) Hypokalemia Current Visit: Yes Status: Acute recommend repleting K+ to value of 4.0 repeat BMP in AM; trend as needed (3) Hypomagnesemia Current Visit: Yes Status: Acute replete magnesium add to AM labs trend as needed Subjective Patient reports: no new complaints, feels better, still having pain, pain is less, tolerating a regular diet, voiding w/o difficulty, afebrile Objective Vital Signs - Last 8 Hours Temp Pulse Resp BP Pulse Ox 05/01/17 07:09 98.3 F 102 16 108/62 91 Intake and Output 04/30/17 05/01/17 05/01/17 23:59 07:59 15:59 Intake Total 1350 / 1350 100 / 100 1120 / 1120 Balance 1350 / 1350 100 / 100 1120 / 1120 Intake: IV Fluids 1350 / 1350 100 / 100 1000 / 1000 0.9 % Sodium Chloride 1, 1000 / 1000 1000 / 1000 000 ML @ 100 mls/hr IVC . Q10H ROSIE Rx#:[id number] Zosyn 3.375 GM In 100 / 100 100 / 100 Dextrose 5% (Minibag+) 100 ML 100 ML @ 25 mls/hr IVPB Q8HR ROSIE Rx#: [id number] Vancocin 1,000 MG In 250 / 250 Dextrose 5% 250 ML @ 166. 667 mls/hr IVPB Q12H ROSIE Rx#:[id number] Oral 120 / 120 Other: Meal Breakfast Percent of Meal Consumed 100% - General physical appearance well developed, well nourished, no distress - Respiratory normal expansion, normal respiratory effort - Cardiovascular Cardiovascular exam: Present: RRR - Abdomen Abdomen: Present: soft, non tender - Integumentary other (decreased erythema; ) - Neurologic CN 2-12 grossly intact - Musculoskeletal other (improved ROM at R elbow; (+)edema at R hand; no erythema/tenderness associated) - Psychiatric oriented to time, oriented to person, oriented to place - Labs 05/01/17 04:15 05/01/17 04:15 Diabetes panel 05/01/17 Range/Units 04:15 Sodium 136 (136-145) mEq/L Potassium 3.8 (3.5-4.5) mEq/L Chloride 108 (98-109) mEq/L Carbon Dioxide 23 (19-29) mEq/L BUN 4 L (7-20) mg/dL Creatinine 0.66 (0.57-1.11) mg/dL Glucose 108 H (70-99) mg/dL Calcium 8.1 L (8.6-10.8) mg/dL Calcium panel 05/01/17 Range/Units 04:15 Calcium 8.1 L (8.6-10.8) mg/dL Pituitary panel 05/01/17 Range/Units 04:15 Sodium 136 (136-145) mEq/L Potassium 3.8 (3.5-4.5) mEq/L Chloride 108 (98-109) mEq/L Carbon Dioxide 23 (19-29) mEq/L BUN 4 L (7-20) mg/dL Creatinine 0.66 (0.57-1.11) mg/dL Glucose 108 H (70-99) mg/dL Calcium 8.1 L (8.6-10.8) mg/dL Adrenal panel 05/01/17 Range/Units 04:15 Sodium 136 (136-145) mEq/L Potassium 3.8 (3.5-4.5) mEq/L Chloride 108 (98-109) mEq/L Carbon Dioxide 23 (19-29) mEq/L BUN 4 L (7-20) mg/dL Creatinine 0.66 (0.57-1.11) mg/dL Glucose 108 H (70-99) mg/dL Calcium 8.1 L (8.6-10.8) mg/dL Consult Discharge Plan - Plan Referrals: NONE,PCP [Primary Care Provider] -
--- NOTE | 2017-05-01 10:34 | Internal Med Progress Note ---
Date of Encounter: 05/01/17 Time of Encounter: 08:45 - Assessment and plan (1) Polysubstance abuse Current Visit: Yes Status: Acute Assessment and plan: Pt admits to using methampetamine, urine drug screen positive for opiates, amphetamines, and THC. Tube Tester consultation entered by admitting physician. (2) Cellulitis of elbow Current Visit: Yes Status: Acute Assessment and plan: Worsening redness extending beyond borders drawn yesterday. Pt denies increased pain or change in ROM. Pt has collection of gas in subq fat in right elbow. Pt has been seen by surgery and no surgical intervention is required at this time. Continue IVF. I consulted pharmacy about initial culture, gram positive rods, and will continue IV Vancomycin and add Clindamycin 600mg IV TID, stop Zosyn. 1. 2.8 x 1.1 x 2.2 cm collection of gas in the subcutaneous fat posterior and ulnar to the proximal ulna with adjacent subcutaneous fat stranding and skin thickening compatible cellulitis. No well-defined drainable fluid collection. 2. No acute osseous abnormality. (3) Anxiety Current Visit: Yes Status: Chronic Assessment and plan: Chronic. Continue home medications. (4) Depression Current Visit: Yes Status: Chronic Assessment and plan: Chronic. Continue home medications. Qualifiers: Depression Type: major depressive disorder Major depression recurrence: recurrent Active/Remission status: currently active Major depression episode severity: moderate Qualified Code(s): F33.1 - Major depressive disorder, recurrent, moderate (5) Tobacco abuse Current Visit: Yes Status: Acute Assessment and plan: Pt is using nicotine patch while in the hospital. Will continue to encourage cessation on discharge. (6) DVT prophylaxis Current Visit: Yes Status: Acute Assessment and plan: Pt is ambulatory. Lovenox SQ - Time Spent With Patient less than 15 minutes - Subjective Interval history: Ptwas seen and assessed at 0845. She is alert and awake, speech slow and somewhat slurred, but unchanged from yesterday, she states that the pain medication is making her drowsy. Area of redness has extended beyond borders, pt denies increased pain and ROM is still intact. She is agreeable with POC and denies questions or concerns. - Constitutional Vitals: Temp Pulse Resp BP Pulse Ox 98.3 F 102 16 108/62 91 05/01/17 07:09 05/01/17 07:09 05/01/17 07:09 05/01/17 07:09 05/01/17 07:09 General appearance: Present: cooperative, A&O X 3, pleasant, no acute distress, answers questions appropriately - Head Head exam: Present: atraumatic, normal inspection, normocephalic - Eye Eye exam: Present: EOMI, normal appearance, conjuntiva pink, sclera anicteric - Neck Neck exam general surgery: Present: supple, trachea midline. Absent: lymphadenopathy - Respiratory Respiratory exam: Present: CTAB. Absent: accessory muscle use, rales, rhonchi, wheezes - Cardiovascular Cardiovascular exam: Present: RRR, +S1, +S2. Absent: diastolic murmur, gallop, rubs, systolic murmur - GI/Abdominal GI/Abdominal exam: Present: normal bowel sounds, soft, no peritoneal signs. Absent: distended, hepatomegaly, tenderness - Extremities Exam Extremities exam: Present: joint swelling, warm, radial pulses palpable and symmetrical. Absent: calf tenderness, cyanotic, pedal edema - Expanded Upper Extremities Exam General: Absent: normal inspection Elbow exam: Present: erythema, full ROM, swelling, tenderness Vascular exam: Present: normal capillary refill, radial pulse right, radial pulse left - Neurological Exam Neurological exam: Present: alert, oriented X3, no focal deficits. Absent: facial droop, speech deficit - Skin Skin exam: Present: dry, intact, normal color, warm Internal Medicine: Result - Labs CBC & Chem 7: 05/01/17 04:15 05/01/17 04:15 Labs: Short CBC 05/01/17 Range/Units 04:15 WBC 6.0 (4.3-11.1) K/mcL Hgb 10.5 L (11.5-15.4) g/dL Hct 33.8 L (35.3-44.9) % Plt Count 162 (140-400) K/mcL Neutrophils # 4.4 (1.6-8.9) K/mcL BMP 05/01/17 04:15 Sodium 136 Potassium 3.8 Chloride 108 Carbon Dioxide 23 BUN 4 L Creatinine 0.66 Glucose 108 H Calcium 8.1 L - ABG Interpretation ABG results: PT/INR, D-dimer PT 10.6 Seconds (9.4-12.1) 04/29/17 20:05 Consult Discharge Plan - Plan Referrals: NONE,PCP [Primary Care Provider] -
[2017-05-01] MEDS: Clindamycin 600 MG/50 ML 600 MG/50 ML IV.SOLN IVPB SCH ×2 (16:27→22:43)
[2017-05-02] MEDS: Piperacillin/Tazobactam 3.375 GM in D5% in Water (Mini-Bag+) 100 ML IVPB SCH ×3 (03:42→18:45)
[2017-05-02] MEDS: 0.9 % Sodium Chloride 1,000 ML IVC SCH ×2 (04:12→14:30)
[2017-05-02] MEDS: *HR* Enoxaparin 40 MG/0.4 ML SYRINGE SQ SCH (05:10)
[2017-05-02 05:43] LABS: Basophils % 0.4 %; Eosinophils # 0.2 K/mcL (0.0-0.6); Eosinophils % 3.4 %; Hematocrit 32.4 % (35.3-44.9); Immature Granulocytes % 0.4 % (0-4); Lymphocytes # 0.8 K/mcL (0.6-4.6); Lymphocytes % 16.2 %; Mean Corpuscular HGB Conc 30.9 g/dL (31.6-35.5); Mean Corpuscular Hemoglobin 25.8 pg (28.0-33.3); Mean Corpuscular Volume 83.5 fL (83.0-100.0); Mean Platelet Volume 10.7 fL (9.4-12.4); Monocytes # 0.6 K/mcL (0.0-1.3); Neutrophils # 3.2 K/mcL (1.6-8.9); Platelet Count 173 K/mcL (140-400); Red Blood Count 3.88 M/mcL (3.82-4.97); Red Cell Distribution Width 20.3 % (11.5-14.5); Segmented Neutrophils % 67.6 %
[2017-05-02 06:26] LABS: BUN/Creatinine Ratio 10 (6-26); Blood Urea Nitrogen 7 mg/dL (7-20); Calcium 8.3 mg/dL (8.6-10.8); Carbon Dioxide 26 mEq/L (19-29); Chloride 107 mEq/L (98-109); Glucose 189 mg/dL (70-99); Osmolality,Calculated 289 (280-300); Potassium 3.7 mEq/L (3.5-4.5); Sodium 138 mEq/L (136-145); eGFR For African Americans > 60 (> 60); eGFR For Non-African Americans > 60 (> 60)
[2017-05-02] MEDS: ARIPiprazole 10 MG TABLET PO SCH (07:34)
[2017-05-02] MEDS: ARIPiprazole 5 MG TABLET PO SCH (07:34)
[2017-05-02] MEDS: Gabapentin 300 MG CAPSULE PO SCH ×3 (07:35→20:11)
[2017-05-02] MEDS: Nicotine 14 MG PATCH.TD24 TD SCH (07:35)
[2017-05-02] MEDS: Clindamycin 600 MG/50 ML 600 MG/50 ML IV.SOLN IVPB SCH ×2 (07:36→16:31)
[2017-05-02] MEDS: *HR* HYDROmorphone 2 MG/ML SYRINGE IVP PRN ×3 (07:48→23:05)
[2017-05-02] MEDS: Calcium 600-Vit D3 PO SCH ×2 (09:40→23:08)
[2017-05-02] MEDS: Vortioxetine Hydrobromide [Trintellix] 20 MG PO SCH (09:40)
--- NOTE | 2017-05-02 13:15 | Internal Med Progress Note ---
Date of Encounter: 05/02/17 Time of Encounter: 09:05 - Assessment and plan (1) Polysubstance abuse Current Visit: Yes Status: Acute Assessment and plan: Per drug screen. (2) Cellulitis of elbow Current Visit: Yes Status: Acute Assessment and plan: Area of redness improving. Pt denies increased pain or change in ROM. Only small area, approximately 5" by 5" round remains to elbow area. Continue IVF. I consulted pharmacy about initial culture, gram positive rods, and will continue IV Vancomycin and add Clindamycin 600mg IV TID, stop Zosyn. I think that one more day of IV antibiotic therapy will be sufficient and beneficial. I will send pt home on po Clindamycin. 1. 2.8 x 1.1 x 2.2 cm collection of gas in the subcutaneous fat posterior and ulnar to the proximal ulna with adjacent subcutaneous fat stranding and skin thickening compatible cellulitis. No well-defined drainable fluid collection. 2. No acute osseous abnormality. (3) Anxiety Current Visit: Yes Status: Chronic Assessment and plan: Chronic. Continue home medications. (4) Depression Current Visit: Yes Status: Chronic Assessment and plan: Chronic. Continue home medications. Qualifiers: Depression Type: major depressive disorder Major depression recurrence: recurrent Active/Remission status: currently active Major depression episode severity: moderate Qualified Code(s): F33.1 - Major depressive disorder, recurrent, moderate (5) Tobacco abuse Current Visit: Yes Status: Acute Assessment and plan: Pt is using nicotine patch while in the hospital. Will send pt with rx for patches on discharge. (6) DVT prophylaxis Current Visit: Yes Status: Acute Assessment and plan: Pt is ambulatory. Lovenox SQ, pt is also wearing YASMINE hose. - Time Spent With Patient less than 15 minutes - Subjective Interval history: Ptwas seen and assessed at 0905. She is alert and awake, pleasant. Boyfriend is at bedside. Area of redness to right forearm has significantly improved, pt denies increased pain and ROM is still intact. She is agreeable with POC and denies questions or concerns. - Constitutional Vitals: Temp Pulse Resp BP Pulse Ox 98.0 F 80 17 126/76 97 05/02/17 11:33 05/02/17 11:33 05/02/17 11:33 05/02/17 11:33 05/02/17 11:33 General appearance: Present: cooperative, A&O X 3, pleasant, no acute distress, answers questions appropriately - Head Head exam: Present: atraumatic, normal inspection, normocephalic - Eye Eye exam: Present: normal appearance, conjuntiva pink, sclera anicteric - Neck Neck exam general surgery: Present: normal inspection, supple, trachea midline. Absent: lymphadenopathy - Respiratory Respiratory exam: Present: CTAB. Absent: accessory muscle use, rales, respiratory distress, rhonchi, wheezes - Cardiovascular Cardiovascular exam: Present: RRR, +S1, +S2. Absent: diastolic murmur, gallop, rubs, systolic murmur - GI/Abdominal GI/Abdominal exam: Present: normal bowel sounds, soft, no peritoneal signs. Absent: distended, hernia, hepatomegaly, tenderness - Extremities Exam Extremities exam: Present: normal capillary refill, normal inspection, warm, radial pulses palpable and symmetrical. Absent: calf tenderness, cyanotic, pedal edema, tenderness - Neurological Exam Neurological exam: Present: alert, oriented X3, no focal deficits, pronater drift. Absent: facial droop, speech deficit - Skin Skin exam: Present: dry, intact, normal color, warm. Absent: rash Internal Medicine: Result - Labs CBC & Chem 7: 05/02/17 05:09 05/02/17 05:09 Labs: Short CBC 05/02/17 Range/Units 05:09 WBC 4.8 (4.3-11.1) K/mcL Hgb 10.0 L (11.5-15.4) g/dL Hct 32.4 L (35.3-44.9) % Plt Count 173 (140-400) K/mcL Neutrophils # 3.2 (1.6-8.9) K/mcL BMP 05/02/17 05:09 Sodium 138 Potassium 3.7 Chloride 107 Carbon Dioxide 26 BUN 7 Creatinine 0.71 Glucose 189 H Calcium 8.3 L - ABG Interpretation ABG results: PT/INR, D-dimer PT 10.6 Seconds (9.4-12.1) 04/29/17 20:05 - VTE Documentation of Mechanical Device: Graduated compression elastic hosiery Consult Discharge Plan - Plan Referrals: NONE,PCP [Primary Care Provider] -
[2017-05-03] MEDS: Clindamycin 600 MG/50 ML 600 MG/50 ML IV.SOLN IVPB SCH ×2 (00:17→09:56)
[2017-05-03] MEDS: Piperacillin/Tazobactam 3.375 GM in D5% in Water (Mini-Bag+) 100 ML IVPB SCH ×2 (03:05→12:23)
[2017-05-03] MEDS: *HR* Enoxaparin 40 MG/0.4 ML SYRINGE SQ SCH (05:40)
[2017-05-03] MEDS: Gabapentin 300 MG CAPSULE PO SCH ×2 (09:55→14:12)
[2017-05-03] MEDS: Nicotine 14 MG PATCH.TD24 TD SCH (09:56)
[2017-05-03] MEDS: ARIPiprazole 10 MG TABLET PO SCH (09:56)
[2017-05-03] MEDS: ARIPiprazole 5 MG TABLET PO SCH (09:56)
[2017-05-03] MEDS: Vortioxetine Hydrobromide [Trintellix] 20 MG PO SCH (09:57)
[2017-05-03] MEDS: Calcium 600-Vit D3 PO SCH (09:57)
[2017-05-03] MEDS: *HR* HYDROmorphone 2 MG/ML SYRINGE IVP PRN (10:02)
[2017-05-03 11:40] VITALS: BP 116/78
[2017-05-03] MEDS ORDERED: Ipratropium/Albuterol Neb 3 ML IH ONE (12:01)
--- NOTE | 2017-05-03 14:00 | Discharge Summary ---
Date of Encounter: 05/03/17 Time of Encounter: 08:25 - Discharge Diagnosis (1) Polysubstance abuse Priority: Secondary Status: Acute Comments: Per drug screen. (2) Cellulitis of elbow Priority: Primary Status: Acute Comments: Improving. continue po Clindamycin. Improved from yesterday, redness remains in on area near right elbow, approximately 2"x 2" area. No drainage or open areas. No surgical intervention needed. No change in ROM or pain . (3) Anxiety Priority: Secondary Status: Chronic Comments: Chronic and well controlled. Continue home medications. (4) Depression Priority: Secondary Status: Chronic Comments: Chronic. continue home medications. Qualifiers: Depression Type: major depressive disorder Major depression recurrence: recurrent Active/Remission status: currently active Major depression episode severity: moderate Qualified Code(s): F33.1 - Major depressive disorder, recurrent, moderate (5) Tobacco abuse Priority: Secondary Status: Acute Comments: Pt tolerating nicotine patch well, will send rx for home. Pt states that she needs to stop smoking. (6) DVT prophylaxis Priority: Secondary Status: Acute Comments: Lovenox SQ, pt is ambulatory, wearing YASMINE hose (7) Asthma Priority: Secondary Status: Chronic Comments: Per pt subjective history. Pt reported SOB after walking to restroom this a.m. On physical exam, pt had ronchi that cleared with cough. Pt states that she has inhaler at home and does not need refills. She did not require supplemental 02 and cxr was negative. Continue inhalers at home. Qualifiers: Asthma severity: unspecified severity Asthma complication type: uncomplicated Qualified Code(s): J45.909 - Unspecified asthma, uncomplicated - Discharge Medications Prescriptions: Clindamycin [Cleocin] 150 mg PO Q6HR #56 capsule Nicotine Patch [Nicoderm] 14 mg TD DAILY #14 patch Home Medications: Albuterol Sulfate [Albuterol Inhaler] 2 puff IH Q6H PRN 04/24/16 [History] Aripiprazole [Abilify] 20 mg PO DAILY 04/24/16 [History] Vortioxetine Hydrobromide [Trintellix] 20 mg PO QAM 04/24/16 [History] Zolpidem [Ambien] 10 mg PO HS 04/24/16 [History] clonazePAM [Klonopin] 1 mg PO 5XD 04/24/16 [History] Alendronate Sodium 70 mg PO TH 04/29/17 [History] Aripiprazole [Abilify] 5 mg PO DAILY 04/29/17 [History] Calcium Carbonate/Vitamin D3 [Calcium 600-Vit D3 400 Tablet] 1 each PO BID 04/29 [History] CarBAMazepine [Equetro] 100 mg PO BID 04/29/17 [History] Docusate Sodium [Dok] 100 mg PO BID 04/29/17 [History] Doxepin [Sinequan] 25 mg PO HS 04/29/17 [History] Gabapentin [Neurontin] 900 mg PO TID 04/29/17 [History] Omeprazole [PriLOSEC] 20 mg PO DAILY 04/29/17 [History] Clindamycin [Cleocin] 150 mg PO Q6HR #56 capsule 05/03/17 [Rx] Nicotine Patch [Nicoderm] 14 mg TD DAILY #14 patch 05/03/17 [Rx] Allergies/Adverse Reactions: 3 Allergy/AdvReac Type Severity Reaction Status Date / Time Amoxicillin [From Amoxil] AdvReac Diarrhea Verified 04/29/17 20:46 Cyclobenzaprine AdvReac Shakiness Verified 04/29/17 20:46 [From Flexeril] Date of admission: 05/01/17 16:07 Primary care physician: PCP NONE Discharging clinician: Alda Beck Anticipated date of discharge: 05/03/17 - Patient Status Disposition: Home, Self-Care Condition: Good Functional capacity at discharge: independent ambulation Overall status at discharge: patient is progressing back to baseline - Discharge Instructions Follow Up With: NONE,PCP [Primary Care Provider] - Additional Instructions: You will need to follow up with wound care clinic to evaluate your arm. Continue taking your antibiotics every 4 hours until they are gone. Do not inject anything into your skin. Stop using illegal drugs Stop smoking Return to the emergency department if you have any other problems or concerns Resume your normal home medications and activities as tolerated. - Diet and Activity Activity: increase activity as tolerated Diet: advance to your usual diet Hospital course: Ms. South is a 42 year old female with pmh of polysubstance abuse, asthma, anxiety and depression, intentional drug overdose, suicide attempt and chronic tobacco abuse. She presented to the emergency room with right elbow cellulitis , pain, and subjective fevers. Pt admits to nasal methamphetamine use, states that this was injecting methamphetamine for the first and only time, causing this cellulitis. CT showed small collection of gas in the subq fat posterior to the proximal ulna , no drainable fluid collection. Pt was treated initially with vancomycin and zosyn and when redness expanded beyond drawn borders, antibiotic was changed to clindamycin IV. Pt has improved significantly, redness as decreased to only a small 2"x2" area of redness to area near elbow. She states that pain has improved and ROM is intact. She states that she has to leave due to the fact that she and her boyfriend, who has been here for the entire stay, have to leave to take care of their dogs that have been alone for several days. She states that she and boyfriend are homeless and will be going to the boyfriend's grandfather's to live and he is coming now and they cannot wait to leave. Pt will be sent home with clindamycin 300mg every 6 hours for 7 days. She will need to follow up with wound care for a follow up visit and reevaluation, pt staes that she will get to the appointment. Pt had episode of dyspnea this a.m. and she states that she has not had her inhalers since she has been here. Chest xray negative and pt initially had ronchi that cleared with cough, later pt lungs were clear and diminished. A duoneb was ordered. Pt did not have leukocytosis, tachycardia or fever. Labs and vitals are stable and WNL. Pt is ready for discharge. Time spent discussing smoking cessation with patient: 3 to 10 minutes - Time Spent with Patient Total time spent providing and/or coordinating discharge services: Less than 30 minutes - Constitutional Vitals: Temp Pulse Resp BP Pulse Ox 98.5 F 90 14 116/78 93 05/03/17 11:39 05/03/17 11:39 05/03/17 11:39 05/03/17 11:39 05/03/17 11:39 General appearance: Present: cooperative, A&O X 3, pleasant, no acute distress, answers questions appropriately - Head Head exam: Present: atraumatic, normal inspection, normocephalic - Eye Eye exam: Present: normal appearance, conjuntiva pink, sclera anicteric - Neck Neck exam general surgery: Present: normal inspection, supple, trachea midline. Absent: lymphadenopathy, tenderness - Respiratory Respiratory exam: Present: CTAB, respiratory distress. Absent: accessory muscle use, chest wall tenderness, rales, rhonchi, wheezes - Cardiovascular Cardiovascular exam: Present: RRR, +S1, +S2. Absent: diastolic murmur, gallop, rubs, systolic murmur - GI/Abdominal GI/Abdominal exam: Present: normal bowel sounds, soft, no peritoneal signs. Absent: distended, hepatomegaly, tenderness - Extremities Exam Extremities exam: Present: normal inspection, warm, radial pulses palpable and symmetrical. Absent: calf tenderness, cyanotic, pedal edema - Neurological Exam Neurological exam: Present: alert, oriented X3, no focal deficits. Absent: facial droop, speech deficit - Skin Skin exam: Present: dry, intact, normal color, warm - VTE Documentation of Mechanical Device: Graduated compression elastic hosiery
[2017-05-03] MEDS ORDERED: Aminoglycoside Consult 1 EACH MC ONE ×2 (16:59)
[2017-05-04] MEDS ORDERED: Cholecalciferol (D-3) 1,000 UNIT TABLET PO SCH (09:00)
== END 2017-05-03 17:00 | disposition home or self-care (01) | DRG 383 ==
LOC: EMEROO 19:48 → 3BNU 19:48
PROVIDERS: ADMIT Nurse Practitioner Family; ATTEND Nurse Practitioner Family